=== PATIENT | male | born 2000 | race Caucasian/White ===

== ENCOUNTER 2021-02-22 15:08 | Outpatient (REF) | payer MEDICAID, SELFPAY ==
[2021-02-24 14:52] LABS: Chlamydia Result Negative (Negative); GC Result Negative (Negative)
== END 2021-02-22 15:09 | disposition home or self-care (01) ==
LOC: LBN 15:08
PROVIDERS: Visit Provider Nurse Practitioner Family
DX: R10.9 Unspecified abdominal pain (principal)
CPT/HCPCS: 87491; 87591

== ENCOUNTER → 2023-04-23 10:29 | Outpatient (CLI) | payer MEDICAID, SELFPAY ==
--- NOTE | 2023-04-23 09:00 | DI.US_ITS ---
Exam(s) US ABDOMEN EXAM: US ABDOMEN CLINICAL HISTORY: mono, LUQ pain, B27.90 TECHNIQUE: Ultrasound abdomen performed using standard protocol. COMPARISON: No exams were available for comparison FINDINGS: ABDOMINAL AORTA AND IVC: Visualized portions normal caliber. PANCREAS: Normal where visualized. LIVER: Normal. Hepatopedal flow in the Portal Vein. The liver measures 17.9 cm long. GALLBLADDER:No evidence of cholelithiasis. No evidence of wall thickening. No pericholecystic fluid i dentified. BILIARY SYSTEM: Common bile duct measures < 7 mm. No intrahepatic biliary ductal dilation. MCDOWELL'S SIGN: Negative. KIDNEYS: Kidneys are symmetric in size. No evidence of renal calculi. No evidence of hydronephrosis. No renal mass or cyst identified. SPLEEN: The spleen measures 16.7 cm long. ASCITES: None seen. IMPRESSION: Splenomegaly. DATA REPOSITORY:
== END ==
PROVIDERS: Visit Provider Physician Assistant
DX: R16.1 Splenomegaly, not elsewhere classified (principal)
CPT/HCPCS: 76700